=== PATIENT | male | born 1995 | race Caucasian/White ===

== ENCOUNTER → 2020-08-11 | Outpatient (REF) | LOC: M LAB 19:36 | PROVIDERS: ATTEND Internal Medicine Infectious Disease | DX: Z20.828 Contact with and (suspected) exposure to other viral communicable diseases (principal) ==

== ENCOUNTER → 2021-02-27 | Outpatient (REF) | LOC: M EMP 15:51 | PROVIDERS: ATTEND Family Medicine | DX: Z20.822 Contact with and (suspected) exposure to COVID-19 (principal) ==